=== PATIENT | female | born 1990 | race African-American/Black ===

== ENCOUNTER 2022-06-30 17:16 | Emergency (ER) | payer OTHER ==
--- OUTSIDE RECORDS SUMMARY | 2022-06-30 17:46 | XMS REPORT | Continuity of Care Document ---
:1990 Author Organization [facility] t Address [address] [place] [address] Care Team Providers Name Role Phone Edda Lewis Primary Care Physician Unavailable Helena Osman Attending Clinician Unavailable Kiara Young Attending Clinician Unavailable TABITHA BLISS Attending Clinician Unavailable TABITHA BLISS Attending Clinician Unavailable LALO SANTAMARIA Attending Clinician Unavailable Lab, Ang - Db Attending Clinician Unavailable Mayela Bahena MD Attending Clinician MAYELA BAHENA Attending Clinician Unavailable Doctor Unassigned, Elwin Attending Clinician Unavailable Lalo Santamaria MD Attending Clinician JOSY GASTELUM Attending Clinician Unavailable Payers Payer Name Policy Type Policy Number Effective Date Expiration Date S ource UMR [id number] 2021 00:00:00 UMR 53 [id number] 2021 [facility] 00:00:00 [facility] Blue Cross 6 [id number] 2019 [facility] Blue Shield 00:00:00 - [facility] [id number] 2018 00:00:00 Problems Condition Condition Condition Status Onset Resolution Last Treating Co mments Source Name Details Category Date Date Treatment Clinician Date Anosmia Anosmia Disease Active Univers 6-23 ity of 00:00: [place] 00 Medical Branch Exacerbati Exacerbati Disease Active U nivers on of on of 11-07 ity of intermitte [place] asthma [place] asthma 00 Medi luanne Branch Mixed Mixed Disease Active Univers anxiety anxiety 6 ity of and and 00:00: [place] depressive depressive 00 Me dical disorder disorder Branch History of History of Disease Active 2016-05 U nivers anxiety anxiety 2-19 ity of 00:00: [place] 00 Medical Branch Obesity Obesity Disease Active Overview: Univ ers (BMI (BMI 4-19 Formattin ity of 30-39.9) 30-39.9) 00:00: g of this [place] as 00 note Medical might be Branch different from the original. 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 Irregular Irregular Disease Active Uni vers menstrual menstrual 4-19 ity of cycle cycle 00:00: [place] 00 Medical Branch Impacted Cerumen Problem Active Common cerumen impaction [facility] Fatigue Fatigue Problem Active [facility] - [facility] Allergic Seasonal Problem Active Commo n rhinitis and Spirit perennial - CHI allergic rhinitis [facility] Vertigo Vertigo Problem Active [facility] Anxiety Depression Problem Active Comm on with Spirit anxiety - [facility] Acute Acute Problem Active Common sinusitis sinusitis Spir it - [facility] [id number] Dental Problem Active Common abscess [facility] [id number] Adult Problem Active Common general Spirit medical - CHI exam [facility] Vitamin D Vitamin D Problem Active Com mon deficiency deficiency Sp cynthia - [facility] [id number] Mild Problem Active Common intermitte Spirit nt asthma - CHI with allergic [facility] rhinitis Medical with acute Center exacerbati on [id number] Seasonal Problem Active Commo n allergic Spirit rhinitis - CHI due to [facility] [id number] [place] [id number] (BMI Spirit 30.0-34.9) - [facility] Loss of Loss of Problem Active Common taste taste [facility] Sensory Loss of Problem Active Common disorder smell [facility] of smell [facility] and/or [facility] Allergies, Adverse Reactions, Alerts Allergy Allergy Status Severity Reaction(s) Onset Inactive Treating Comm ents Source Name Type Date Date Clinician Hydrocod Propensi Active Rash Univer s one ty to 414 ity of adverse 00:00: [place] reaction [facility] Tramadol Propensi Active Rash Univer s ty to 414 ity of adverse 00:00: [place] reaction [facility] HYDROCOD DRUG Active Rash Univers ONE INGREDI 14 ity of 00:00: [place] [facility] TRAMADOL DRUG Active Rash Univers INGREDI 14 ity of 00:00: [place] 00 [facility] Codeine Codeine Active dizziness Commo n [facility] tramadol tramadol Active dizziness Com mon [facility] Social History Social Habit Start Date Stop Date Quantity Comments Source ASSERTION 2022-05-23 University of 00:00:00 [facility] History of [facility] - Tobacco Use [facility] Sex Assigned At Common [facility] cynthia - [facility] Exposure to 2022-06-20 2022-06-30 Not sure [facility] SARS-CoV-2 00:00:00 08:35:00 [facility] (event) [place] Tobacco use and 2022-06-27 2022-06-27 Smokeless tobacco Un iversity of exposure 00:00:00 00:00:00 non-user [facility] Alcohol Comment 2022-06-27 2022-06-27 Universit y of 00:00:00 00:00:00 [facility] Alcohol intake 2022-06-27 2022-06-27 Ex-drinker [facility] 00:00:00 00:00:00 (finding) [facility] Smoking Status Start Date Stop Date Source Never smoked tobacco [facility] Medications Ordered Filled Start Stop Current Ordering Indication Dosage Frequency Signature Comments Components Source Medication Medication Date Date Medication? Clinician (SIG) Name Name MULTIVIT,CA 2022- No 1{tbl} Take 1 U nivers LC,MINS/IRO 2-10 02-10 tablet by it y of N/FOLIC 09:31: 00:00 mouth Kristian (ONE-A-DAY 29 :00 daily. Medical WOMENS Branch FORMULA ORAL) MULTIVIT,CA 2022- No 1{tbl} Take 1 U nivers LC,MINS/IRO 2-10 02-10 tablet by it y of N/FOLIC 09:31: 00:00 mouth Kristian (ONE-A-DAY 29 :00 daily. Medical WOMENS Branch FORMULA ORAL) PNV 0 Yes [id number] Take 1 Univers 102-iron-fo 2-10 TAB-CAP/M2 it y of late-dha 00:00: by mouth Kristian (VITAFOL FE daily. Medica l PLUS) 90 mg Branch iron- 1 mg-200 mg Cap PNV Yes [id number] Take 1 Univers 102-iron-fo 2-10 TAB-CAP/M2 it y of late-dha 00:00: by mouth [place]ian (VITAFOL FE daily. Medica l PLUS) 90 mg Branch iron- 1 mg-200 mg Cap PNV 0 Yes [id number] Take 1 Univers 102-iron-fo 2-10 TAB-CAP/M2 it y of late-dha 00:00: by mouth [place] (VITAFOL FE daily. Medica l PLUS) 90 mg Branch iron- 1 mg-200 mg Cap cetirizine Yes 10mg Take 10 mg U nivers 10 mg 1-26 by mouth ity of tablet 00:00: in the [place] morning. Medical Branch cetirizine Yes 10mg Take 10 mg U nivers 10 mg 1-26 by mouth ity of tablet 00:00: in the [place] morning. Medical Branch cetirizine 0 Yes 10mg Take 10 mg U nivers 10 mg 1-26 by mouth ity of tablet 00:00: in the [place] morning. Medical Branch Nasonex 50 Nasonex 50 No 2{spray QD Nasonex 50 MCG/ACT MCG/ACT 8-19 s_in_ea MCG/ACT 00:00: ch_nost 00 ril} Nasonex 50 Nasonex 50 2022-0 No 2{spray QD Nasonex 50 MCG/ACT MCG/ACT 01-03 s_in_ea MCG/ACT 00:00: ch_nost 00 ril} Benzonatate Benzonatate 2021- No TID Benzonatat 200 MG 200 MG 01-03 e 200 MG 00:00: 00:00 00 :00 Benzonatate Benzonatate 0 2021- No TID Benzonatat 200 MG 200 MG 01-03 e 200 MG 00:00: 00:00 00 :00 Azithromyci Azithromyci 2021- No QD Azithromyc n 250 MG n 250 MG 01-03 in 250 MG 00:00: 00:00 00 :00 predniSONE predniSONE 2021- No QD predniSONE 10 MG 10 MG 01-03 10 MG 00:00: 00:00 00 :00 Azithromyci Azithromyci 2021- No QD Azithromyc n 250 MG n 250 MG 01-03 in 250 MG 00:00: 00:00 00 :00 predniSONE predniSONE 2021- No QD predniSONE 10 MG 10 MG 01-03 10 MG 00:00: 00:00 00 :00 Albuterol Albuterol No 2{puffs Albuterol Sulfate HFA Sulfate HFA 7-25 } Sulfate 108 (90 108 (90 00:00: HFA 108 Base) Base) 00 (90 Base) MCG/ACT MCG/ACT MCG/ACT Albuterol Albuterol No 2{puffs Albuterol Sulfate HFA Sulfate HFA 7-25 } Sulfate 108 (90 108 (90 00:00: HFA 108 Base) Base) 00 (90 Base) MCG/ACT MCG/ACT MCG/ACT Albuterol Albuterol No 2{puffs Albuterol Sulfate HFA Sulfate HFA 7-25 } Sulfate 108 (90 108 (90 00:00: HFA 108 Base) Base) 00 (90 Base) MCG/ACT MCG/ACT MCG/ACT 2021- No Take by [facility] rs vit 11-12- mouth. ity of calc,iron,f 10:08: 00:00 [facility] 00 :00 Medical ( Branch VITAMIN ORAL) 2021- No [facility] -[facility] -28 mouth. ity of calc,iron,f 10:08: 00:00 [facility] 00 :00 Medical ( Branch VITAMIN ORAL) predniSONE 2021-0 2021- No 2 tablets U nivers 20 mg 6-28 06-28 dailyx 5 ity of tablet 10:07: 00:00 days then [place] 51 :00 1 tablet Medical daily x 5 Branch days predniSONE 2021-0 2021- No 2 tablets U nivers 20 mg 6-28 06-28 dailyx 5 ity of tablet 10:07: 00:00 days then [place] 51 :00 1 tablet Medical daily x 5 Branch days MULTIVIT,CA Yes 1{tbl} Take 1 Un dennise LC,MINS/IRO 6-28 tablet by ity of N/FOLIC 10:07: mouth [place] (ONE-A-DAY 48 daily. Medical WOMENS [place] FORMULA ORAL) MULTIVIT,CA Yes 1{tbl} Take 1 Un dennise LC,MINS/IRO 6-28 tablet by ity of N/FOLIC 10:07: mouth [place] (ONE-A-DAY 48 daily. Medical WOMENS [place] FORMULA ORAL) MULTIVIT,CA Yes 1{tbl} Take 1 Un dennise LC,MINS/IRO 6-28 tablet by ity of N/FOLIC 10:07: mouth [place] (ONE-A-DAY 48 daily. Medical WOMENS [place] FORMULA ORAL) MULTIVIT,CA Yes 1{tbl} Take 1 Un dennise LC,MINS/IRO 6-28 tablet by ity of N/FOLIC 10:07: mouth [place] (ONE-A-DAY 48 daily. Medical WOMENS [place] FORMULA ORAL) phentermine 2021- No 37.5mg Take 37.5 Univers (ADIPEX-P) 6-28 06-28 mg by ity of 37.5 mg 10:07: 00:00 mouth [place] capsule 47 :00 every Medical morning. Branch phentermine 2021- No 37.5mg Take 37.5 Univers (ADIPEX-P) 6-28 06-28 mg by ity of 37.5 mg 10:07: 00:00 mouth [place] capsule 47 :00 every Medical morning. Branch montelukast 2021- No 1 tablet U nivers 10 mg 11-12 in the ity of tablet 10:07: 00:00 evening [place] 26 :00 Medical Branch montelukast 2021- No 1 tablet U nivers 10 mg 11-12 in the ity of tablet 10:07: 00:00 evening [place] 26 :00 Medical Branch fluticasone 2021- No 2 spray in Univers propionate 11-12 each ity of (FLONASE 10:07: 00:00 nostril [place] ALLERGY 11 :00 Medical RELIEF) 50 Branch mcg/actuati on nasal spray fluticasone 2021- No 2 spray in Univers propionate 11-12 each ity of (FLONASE 10:07: 00:00 nostril [place] ALLERGY 11 :00 Medical RELIEF) 50 Branch mcg/actuati on nasal spray albuterol 2021- No 2{puff} Take 2 Un dennise sulfate 11-12 Puffs by ity of (PROAIR 10:07: 00:00 mouth as [place] RESPICLICK) 04 :00 needed. Medic al 90 Branch mcg/actuati on AePB albuterol 2021- No 2{puff} Take 2 Un dennise sulfate 11-12 Puffs by ity of (PROAIR 10:07: 00:00 mouth as [place] RESPICLICK) 04 :00 needed. Medic al 90 Branch mcg/actuati on AePB Amoxicillin Amoxicillin Yes Na Young 1 tablet Common 02-11 Spirit 00:00: - [facility]I 00 [facility] Amoxicillin Amoxicillin No 1{table TID Amoxicilli 500 MG 500 MG 02-11 t} n 500 MG 00:00: 00 Amoxicillin Amoxicillin No 1{table TID Amoxicilli 500 MG 500 MG 02-11 t} n 500 MG 00:00: 00 Amoxicillin Amoxicillin No 1{table TID Amoxicilli 500 MG 500 MG 02-11 t} n 500 MG 00:00: 00 Amoxicillin Amoxicillin No 1{table TID Amoxicilli 500 MG 500 MG 02-11 t} n 500 MG 00:00: 00 Amoxicillin Amoxicillin No 1{table TID Amoxicilli 500 MG 500 MG 02-11 t} n 500 MG 00:00: 00 Cetirizine Cetirizine Yes Na Young 1 tablet Common HCl HCl 02-11 Spirit 00:00: - CHI 00 [facility] norgestimat 2016-05- No [id number] 1{tbl} Take 1 Univers e-ethinyl 2-11-12 tablet by ity of estradiol 00:00: 00:00 mouth [place] (TRI-LO-SPR 00 :00 daily. Medica l INTEC) Branch 0.18/0.215/ 0.25 mg-25 mcg tablet norgestimat 2016-05- No [id number] 1{tbl} Take 1 Univers e-ethinyl 2-11-12 tablet by ity of estradiol 00:00: 00:00 mouth [place] (TRI-LO-SPR 00 :00 daily. Medica l INTEC) Branch 0.18/0.215/ 0.25 mg-25 mcg tablet mometasone 2016-05- No SHAKE LQ Un dennise 50 0-19 -28 AND U 2 ity of mcg/actuati 00:00: 00:00 SPRAYS IEN [place] on nasal 00 :00 QD Medical spray Branch mometasone 2016-05- No SHAKE LQ Un dennise 50 0-19 06-28 AND U 2 ity of mcg/actuati 00:00: 00:00 SPRAYS IEN [place] on nasal 00 :00 QD Medical spray Branch Montelukast Montelukast Yes Na Young 1 tablet Common Sodium Sodium in the Spirit evening [facility] Nasonex Nasonex Yes Na Young 2 sprays Co mmon in each Spirit nostril - [facility] Augmentin Augmentin Yes Na Young 1 tablet [facility] Levocetiriz Levocetiriz Yes Na Young 1 TAB(S) Common ine ine ONCE A DAY Spirit Dihydrochlo Dihydrochlo (IN THE - CHI ride ride EVENING) [facility] ProAir ProAir Yes Na Young 2 puffs as Co mmon RespiClick RespiClick needed S pirit - CHI [facility] Cetirizine Cetirizine No QD Cetirizine HCl 10 MG HCl 10 MG HCl 10 MG Levocetiriz Levocetiriz No Levocetiri ine ine zine Dihydrochlo Dihydrochlo Dihydrochl ride 5 MG ride 5 MG oride 5 MG Cetirizine Cetirizine No 1{table QD Cetirizine HCl 10 MG HCl 10 MG t} HCl 10 MG Augmentin Augmentin No 1{table BID Augmentin 875-125 MG 875-125 MG t} 875-125 MG Nasonex 50 Nasonex 50 No 2{spray QD Nasonex 50 MCG/ACT MCG/ACT s_in_ea MCG/ACT ch_nost ril} Azithromyci Azithromyci No QD Azithromyc n 250 MG n 250 MG in 250 MG Montelukast Montelukast No 1{table QD Montelukas Sodium 10 Sodium 10 t_in_th t Sodium e_eveni 10 ng} predniSONE predniSONE No QD predniSONE 20 MG 20 MG 20 MG Cetirizine Cetirizine No QD Cetirizine HCl 10 MG HCl 10 MG HCl 10 MG Levocetiriz Levocetiriz No Levocetiri ine ine zine Dihydrochlo Dihydrochlo Dihydrochl ride 5 MG ride 5 MG oride 5 MG Cetirizine Cetirizine No 1{table QD Cetirizine HCl 10 MG HCl 10 MG t} HCl 10 MG Augmentin Augmentin No 1{table BID Augmentin 875-125 MG 875-125 MG t} 875-125 MG Montelukast Montelukast No 1{table QD Montelukas Sodium 10 Sodium 10 t_in_th t Sodium MG MG e_eveni 10 MG ng} Flonase 50 Flonase 50 No 2{spray QD Flonase 50 MCG/ACT MCG/ACT _in_eac MCG/ACT h_nostr il} Augmentin Augmentin No 1{table BID Augmentin 875-125 MG 875-125 MG t} 875-125 MG predniSONE predniSONE No QD predniSONE 20 MG 20 MG 20 MG Azithromyci Azithromyci No QD Azithromyc n 250 MG n 250 MG in 250 MG Levocetiriz Levocetiriz No Levocetiri ine ine zine Dihydrochlo Dihydrochlo Dihydrochl ride 5 MG ride 5 MG oride 5 MG Montelukast Montelukast No 1{table QD Montelukas Sodium 10 Sodium 10 t_in_th t Sodium e_eveni 10 ng} Nasonex 50 Nasonex 50 No 2{spray QD Nasonex 50 MCG/ACT MCG/ACT s_in_ea MCG/ACT ch_nost ril} ProAir ProAir No 2{puffs ProAir RespiClick RespiClick _as_nee RespiClick 108 (90 108 (90 ded} 108 (90 Base) Base) Base) MCG/ACT MCG/ACT MCG/ACT Cetirizine Cetirizine No QD Cetirizine HCl 10 MG HCl 10 MG HCl 10 MG Cetirizine Cetirizine No 1{table QD Cetirizine HCl 10 MG HCl 10 MG t} HCl 10 MG Montelukast Montelukast No 1{table QD Montelukas Sodium 10 Sodium 10 t_in_th t Sodium MG MG e_eveni 10 MG ng} Flonase 50 Flonase 50 No 2{spray QD Flonase 50 MCG/ACT MCG/ACT _in_eac MCG/ACT h_nostr il} Augmentin Augmentin No 1{table BID Augmentin 875-125 MG 875-125 MG t} 875-125 MG predniSONE predniSONE No QD predniSONE 20 MG 20 MG 20 MG Azithromyci Azithromyci No QD Azithromyc n 250 MG n 250 MG in 250 MG Levocetiriz Levocetiriz No Levocetiri ine ine zine Dihydrochlo Dihydrochlo Dihydrochl ride 5 MG ride 5 MG oride 5 MG Montelukast Montelukast No 1{table QD Montelukas Sodium 10 Sodium 10 t_in_th t Sodium e_eveni 10 ng} Nasonex 50 Nasonex 50 No 2{spray QD Nasonex 50 MCG/ACT MCG/ACT s_in_ea MCG/ACT ch_nost ril} ProAir ProAir No 2{puffs ProAir RespiClick RespiClick _as_nee RespiClick 108 (90 108 (90 ded} 108 (90 Base) Base) Base) MCG/ACT MCG/ACT MCG/ACT Cetirizine Cetirizine No QD Cetirizine HCl 10 MG HCl 10 MG HCl 10 MG Cetirizine Cetirizine No 1{table QD Cetirizine HCl 10 MG HCl 10 MG t} HCl 10 MG Montelukast Montelukast No 1{table QD Montelukas Sodium 10 Sodium 10 t_in_th t Sodium e_eveni 10 ng} Flonase 50 Flonase 50 No 2{spray QD Flonase 50 MCG/ACT MCG/ACT _in_eac MCG/ACT h_nostr il} Augmentin Augmentin No 1{table BID Augmentin 875-125 MG 875-125 MG t} 875-125 MG predniSONE predniSONE No QD predniSONE 20 MG 20 MG 20 MG Azithromyci Azithromyci No QD Azithromyc n 250 MG n 250 MG in 250 MG Levocetiriz Levocetiriz No Levocetiri ine ine zine Dihydrochlo Dihydrochlo Dihydrochl ride 5 MG ride 5 MG oride 5 MG Nasonex 50 Nasonex 50 No 2{spray QD Nasonex 50 MCG/ACT MCG/ACT s_in_ea MCG/ACT ch_nost ril} Montelukast Montelukast No 1{table QD Montelukas Sodium 10 Sodium 10 t_in_th t Sodium MG MG e_eveni 10 MG ng} Cetirizine Cetirizine No QD Cetirizine HCl 10 MG HCl 10 MG HCl 10 MG Cetirizine Cetirizine No 1{table QD Cetirizine HCl 10 MG HCl 10 MG t} HCl 10 MG Nasonex 50 Nasonex 50 No 2{spray QD Nasonex 50 MCG/ACT MCG/ACT s_in_ea MCG/ACT ch_nost ril} Azithromyci Azithromyci No QD Azithromyc n 250 MG n 250 MG in 250 MG Montelukast Montelukast No 1{table QD Montelukas Sodium 10 Sodium 10 t_in_th t Sodium e_eveni 10 ng} predniSONE predniSONE No QD predniSONE 20 MG 20 MG 20 MG Immunizations Ordered Filled Immunization Date Status Comments Sour e Immunization Name Name Influenza Virus 2022-02-15 Completed Universit y of Vaccine - Whole 00:00:00 [place] Med ical Branch Influenza Virus 2022-02-15 Completed Universit y of Vaccine - Whole 00:00:00 [facility] Influenza Virus 2022-02-15 Completed Universit y of Vaccine - Whole 00:00:00 [facility] SARS-COV-2 COVID-19 2020-10-03 Completed Unive rsity of NHUNG/J&J VACCINE 00:00:00 [facility] SARS-COV-2 COVID-19 2020-10-03 Completed Unive rsity of NHUNG/J&J VACCINE 00:00:00 [facility] SARS-COV-2 COVID-19 2020-10-03 Completed Unive rsity of NHUNG/J&J VACCINE 00:00:00 [facility] SARS-COV-2 COVID-19 2020-10-03 Completed Unive rsity of NHUNG/J&J VACCINE 00:00:00 [facility] SARS-COV-2 COVID-19 2020-10-03 Completed Unive rsity of NHUNG/J&J VACCINE 00:00:00 [facility] SARS-COV-2 COVID-19 2020-10-03 Completed Unive rsity of NHUNG/J&J VACCINE 00:00:00 [facility] SARS-COV-2 COVID-19 2020-10-03 Completed Unive rsity of NHUNG/J&J VACCINE 00:00:00 [facility] TDAP (ADACEL) 2010-04-17 Completed University of VACCINE 00:00:00 [facility] TDAP (ADACEL) 2010-04-17 Completed University of VACCINE 00:00:00 [facility] TDAP (ADACEL) 2010-04-17 Completed University of VACCINE 00:00:00 [facility] TDAP (ADACEL) 2010-04-17 Completed University of VACCINE 00:00:00 [facility] TDAP (ADACEL) 2010-04-17 Completed University of VACCINE 00:00:00 [facility] TDAP (ADACEL) 2010-04-17 Completed University of VACCINE 00:00:00 [facility] TDAP (ADACEL) 2010-04-17 Completed University of VACCINE 00:00:00 [facility] Vital Signs Vital Name Observation Time Observation Value Comments Source Systolic blood 2022-06-27 14:35:00 114 mm[Hg] Univer sity of pressure [facility] Diastolic blood 2022-06-27 14:35:00 75 mm[Hg] Unive rsity of pressure [facility] Heart rate 2022-06-27 14:34:00 84 /min Universi ty of [facility] Body temperature 2022-06-27 14:34:00 36.89 Stephanie Univ ersity of [facility] Body height 2022-06-27 14:34:00 162.6 cm Universi ty of [facility] Body weight 2022-06-27 14:34:00 98.476 kg Universi ty of [facility] BMI 2022-06-27 14:34:00 37.27 kg/m2 Universi ty of [facility] Systolic blood 2021-11-12 14:28:00 107 mm[Hg] Univer sity of pressure [facility] Diastolic blood 2021-11-12 14:28:00 74 mm[Hg] Unive rsity of pressure [facility] Heart rate 2021-11-12 14:28:00 85 /min Universi ty of [facility] Body temperature 2021-11-12 14:28:00 36.72 Stephanie [facility] ersity of [facility] Respiratory rate 2021-11-12 14:28:00 18 /min Univ ersity of [facility] Body height 2021-11-12 14:28:00 162.6 cm Universi ty of [facility] Body weight 2021-11-12 14:28:00 97.523 kg Universi ty of [facility] BMI 2021-11-12 14:28:00 36.90 kg/m2 Universi ty of [facility] height 2021-02-28 09:00:00 64 [in_i] Common [facility] weight 2021-02-28 09:00:00 193.8 [lb_av] [facility] temperature 2021-02-28 09:00:00 97.6 [degF] Common S [facility] bmi 2021-02-28 09:00:00 33.26 [facility] oximetry 2021-02-28 09:00:00 98 % [facility] blood pressure 2021-02-28 09:00:00 116 mm[Hg] [facility] - systolic [facility] blood pressure 2021-02-28 09:00:00 78 mm[Hg] [facility] - diastolic [facility] Procedures Procedure Date / Time Performing Clinician Source Performed US OB TRANSVAGINAL 2022-06-27 15:17:46 Mayela Bahena [facility] ASSIGNMENT OF BENEFITS 2022-06-27 14:22:17 [facility] POCT TEST 2022-06-27 00:00:00 Mayela Bahena [facility] POCT URINALYSIS W/O 2022-06-27 00:00:00 Mayela Bahena [facility] SPECIFIC GRAVITY [facility] INSURANCE CORRESPONDENCE 2021-11-04 05:01:00 Doctor Unassigned, [facility] Encounters Start End Encounter Admission Attending Care Care Encounter Source Date/Time Date/Time Type Type Clinicians Facility Department ID 2022-06-19 Outpatient Jacqui, STLMLC STLMLC [id number] Common 09:39:00 [place] [id number] [facility] 2022-01-03 Outpatient Young, Na STLMLC STLMLC [id number] 2 Common 15:31:00 [id number] [facility] 2021-06-12 Outpatient Young, Na STLMLC STLMLC [id number] 2 Common 13:48:19 [id number] [facility] 2021-06-12 Outpatient Young, Na STLMLC STLMLC [id number] 2 Common 13:35:36 [id number] [facility] 2021-06-12 Outpatient Young, Na STLMLC STLMLC [id number] 2 Common 13:29:29 [id number] [facility] 2021-06-12 Outpatient Young, Na STLMLC STLMLC [id number] 2 Common 12:35:19 [id number] [facility] 2021-06-12 Outpatient Young, Na STLMLC STLMLC [id number] 2 Common 12:34:24 [id number] [facility] 2021-06-12 Outpatient Young, Na STLMLC STLMLC [id number] 2 Common 12:34:03 [id number] [facility] 2021-06-12 Outpatient Young[facility] [id number] 2 Common 12:03:07 [id number] [facility] 2021-06-12 Outpatient YoungKiara fajardo [facility] [id number] 2 Common 11:24:33 [id number] [facility] 2021-06-12 Outpatient YoungKiara [facility] [id number] 2 Common 11:22:45 [id number] [facility] 2022-11-14 2022-11-14 Outpatient R NAKURTABITHA CHAND[facility]ER [facility] B [id number] Univers 09:00:00 09:00:[address] [facility] [place] [place] 2022-11-13 2022-11-13 Outpatient R LALO SANTAMARIA [facility] [id number] Univers 09:00:00 09:00:00 ity [facility] 2022-11-13 2022-11-13 Outpatient R LALO SANTAMARIA [facility] [id number] Univers 09:00:00 09:00:[address] [facility] [place] [place] 2022-07-28 2022-07-28 Outpatient R [facility] [id number] Univers 08:30:00 08:30:[address] [facility] [place] [place] 2022-06-30 2022-06-30 [employer] [place] Ramy [facility] [id number] Univers 09:15:00 09:56:25 Visit Mayela Bahena [id number] [id number] [place] as JORGE?BLEA [id number] [address] MEDICAL OFFICE BUILDING 2022-06-30 2022-06-30 Outpatient R MAYELA BAHENA [facility] [id number] Univers 09:15:00 09:15:00 ity [facility] 2022-06-27 2022-06-27 Initial Mayela Bahena [facility] [id number] Univers 08:30:00 09:25:05 Cam DEXTER [id number] i ty of [place] [id number] [address] 2022-06-27 2022-06-27 Outpatient R JOSEF MAYELA [facility] [id number] Univers 08:30:00 09:25:05 ity of [facility] 2022-06-27 2022-06-27 Orders Doctor RADHA [id number] Univers 00:00:00 00:00:00 Only Unassigned, SOFI [id number] ity of [facility] 4.2.7.2.686 [place] as [id number] [address] 2022-01-03 2022-01-03 (WEB) STLMLC STLMLC [id number] Co mmon 00:00:00 00:00:00 [facility] 2022-01-03 2022-01-03 OFFICE STLMLC STLMLC [id number] Co mmon 00:00:00 00:00:00 VISIT EST Spir it PT LEVEL 3 - [facility] 2021-12-09 2021-12-09 (TEL) STLMLC STLMLC [id number] Co mmon 00:00:00 00:00:00 [facility] 2021-11-12 2021-11-12 Office Lalo Santamaria [facility] [id number] Univers 09:00:00 09:50:03 Visit DEXTER [id number] it [place] [id number] [address] 2021-11-12 2021-11-12 Outpatient R LALO SANTAMARIA [facility] [id number] Univers 09:00:00 09:50:03 ity [facility] 2021-11-04 2021-11-04 Orders Doctor RADHA [id number] Univers 00:00:00 00:00:00 Only Unassigned, SOFI [id number] ity of [place] [facility] 4.2.7.2.686 [place] [id number] [place] [id number] [address] 2021-08-07 2021-08-07 (TEL) STLMLC STLMLC [id number] Co mmon 00:00:00 00:00:00 [facility] 2021-02-28 2021-02-28 PREV VISIT STLMLC STLMLC [id number] Common 00:00:00 00:00:00 EST A[age] José Miguel 18-38 [facility] 2020-07-19 2020-07-19 Outpatient STLMLC STLMLC [id number] Common 00:00:00 00:00:00 [facility] 2020-03-28 2020-03-28 Outpatient STLMLC STLMLC [id number] Common 00:00:00 00:00:00 [facility] 2020-03-26 2020-03-26 Outpatient STLMLC STLMLC [id number] Common 00:00:00 00:00:00 [facility] 2020-03-26 2020-03-26 Outpatient STLMLC STLMLC [id number] Common 00:00:00 00:00:00 [facility] 2020-02-24 2020-02-24 Outpatient R NIRAV, [facility] [id number] Univers 14:30:00 14:30:00 JOSY fragoso [facility] 2019-11-14 2019-11-14 [facility] [id number] Common 10:33:00 10:33:[address] [facility] 2019-10-21 2019-10-21 Out[facility] [id number] Common 08:20:00 08:20:[address] [facility] 2019-10-06 2019-10-06 [facility] [id number] Common 08:26:00 08:26:[address] [facility] [address] [facility] 2019-10-05 2019-10-05 [facility] [id number] Common 12:14:00 12:14:[address] [facility] 2019-10-05 2019-10-05 [facility] [id number] Common 09:56:00 09:56:[address] [facility] 2018-11-26 2018-11-26 [facility] [id number] Common 10:00:00 10:00:[address] [facility] 2018-05-28 2018-05-28 [facility] [id number] Common 09:00:00 09:00:[address] [facility] 2018-02-11 2018-02-11 [facility] [id number] Common 14:15:00 14:15:[address] [facility] 2017-10-21 2017-10-21 [facility] [id number] Common 09:15:00 09:15:[address] [facility] Results Test Description Test Time Test Comments Results Result Comments Source POCT URINALYSIS W/O SPECIFIC GRAVITY 2022-06-27 14:39:00 Test Item Value Reference Range Interpretation Comme nts POCT PH U (test code = 3254) 5 mg/dl 5-8 POCT U LEUK EST (test code = 3263) Negative Negative - Negative POCT U NIT (test code = 3262) Negative Negative - Negative POCT U PROT (test code = 3259) Negative Negative - Negative POCT U GLU (test code = 3256) Normal Negative - Negative POCT U KETONE (test code = 3258) Negative Negative - Negative POCT U BLD (test code = 3257) Negative Negative - Negative [id number] 14:39:00 Test Item Value Reference Range Interpretation Comments POCT PREG (test code = 1605) Positive On board controls acceptable with C Yes Line (test code = 3574) POCT PREG LOT # (test code = 3575) POCT PREG TEST DATE (test code = 3576) [facility] URINALYSIS W/O SPECIFIC [id number] 14:39:00 Test Item Value Reference Range Interpretation Comments POCT PH U (test code = 3254) 5 mg/dl 5-8 POCT U LEUK EST (test code = Negative Negative - Negative 3263) POCT U NIT (test code = 3262) Negative Negative - Negative POCT U PROT (test code = 3259) Negative Negative - Negative POCT U GLU (test code = 3256) Normal Negative - Negative POCT U KETONE (test code = 3258) Negative Negative - Negative POCT U BLD (test code = 3257) Negative Negative - Negative [id number] 14:39:00 Test Item Value Reference Range Interpretation Comments POCT PREG (test code = 1605) Positive On board controls acceptable with C Yes Line (test code = 3574) POCT PREG LOT # (test code = 3575) POCT PREG TEST DATE (test code = 3576) [facility]
--- NOTE | 2022-06-30 18:24 | RAD REPORT ---
[facility] DES[facility] 6[facility]13 pm CLINICAL HISTORY: COUGH. SOB. COMPARISON: No comparisons TECHNIQUE: PA and lateral views of the chest. FINDINGS: The lungs are clear. No pneumothorax or effusion. The cardiomediastinal contours are unrem arkable. IMPRESSION: No acute cardiopulmonary process.
[2022-06-30 19:10] LABS: SARS-COV-2 RT PCR NEGATIVE (NEGATIVE)
--- NOTE | 2022-06-30 19:55 | ER ---
Nurse's Notes [facility] Name: Marika Leigh Age: 31 yrs Sex: Female : 1990 Arrival Date: 06/30/2022 Time: 17:21 Bed 13 Private MD: Diagnosis: Pneumonia due to other specified bacteria;Dyspnea;8 weeks gestation of Presentation: 06/30 17:51 Chief complaint: Patient states: short of breath, runny nose, cough, chest hurts and jh5 naval when i cough real bad. Coronavirus screen: Vaccine status: Patient reports being unvaccinated. Client denies travel out of the [place] in the last 14 days. Ebola Screen: Patient negative for fever greater than or equal to 101.5 degrees Fahrenheit, and additional compatible Ebola Virus Disease symptoms Patient denies exposure to infectious person. Patient denies travel to an Ebola-affected area in the 21 days before illness onset. Initial Sepsis Screen: Does the patient meet any 2 criteria? No. Patient's initial sepsis screen is negative. Does the patient have a suspected source of infection? No. Patient's initial sepsis screen is negative. Risk Assessment: Do you want to hurt yourself or someone else? Patient reports no desire to harm self or others. Onset of symptoms was June 28, 2022. 17:51 Method Of Arrival: Ambulatory [facility] 17:51 Acuity: SUE 3 jh5 Triage Assessment: 17:54 General: Appears in no apparent distress. uncomfortable, well groomed, well developed, [facility] Behavior is calm, cooperative, appropriate for age. Pain: Denies pain. Respiratory: Reports shortness of breath cough that is Onset: The symptoms/episode began/occurred gradually, the patient has mild shortness of breath. 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 - Social history:: Smoking status: Patient denies any tobacco usage or history of. - Family history:: not pertinent. - Hospitalizations: : No recent hospitalization is reported. Screenin:37 [facility] ED Fall Risk Assessment (Adult) History of falling in the last 3 months, jb4 including since admission No falls in past 3 months (0 pts) Confusion or Disorientation No (0 pts) Score/Fall Risk Level 0 - 2 = Low Risk Oriented to surroundings, Maintained a safe environment. Abuse screen: Denies threats or abuse. Nutritional screening: No deficits noted. Tuberculosis screening: No symptoms or risk factors identified. Assessment: 19:49 General: Appears in no apparent distress. comfortable, Behavior is calm, cooperative, jb4 appropriate for age. Pain: Denies pain. Neuro: Level of Consciousness is awake, alert, obeys commands, Oriented to person, place, time, situation. Cardiovascular: Patient's skin is warm and dry. Respiratory: Airway is patent Respiratory effort is even, labored, Respiratory pattern is regular, symmetrical, Breath sounds are clear in right upper lobe, left upper lobe, right middle lobe, left lower lobe, right lower lobe, right posterior upper lobe, right posterior middle lobe and right posterior lower lobe Breath sounds with wheezes in left posterior upper lobe and left posterior lower lobe. GI: No signs and/or symptoms were reported involving the gastrointestinal system. : EENT: No signs and/or symptoms were reported regarding the EENT system. Derm: Skin is intact, Skin is pink, warm \T\ dry. Musculoskeletal: Circulation, motion, and sensation intact. Range of motion: intact in all extremities. 19:50 Reassessment: Pt requesting breathing treatment, provider notified. jb4 20:24 Reassessment: Patient appears in no apparent distress at this time. Patient and/or jb4 family updated on plan of care and expected duration. Pain level reassessed. Patient is alert, oriented x 3, equal unlabored respirations, skin warm/dry/pink. d/c pending completion of Breathing treatment. Vital Signs: 17:51 BP 126 / 84; Pulse 111; Resp 18; Temp 98.2; Pulse Ox 99% ; Pain 0/10; jh5 19:44 BP 117 / 70; Pulse 105; Resp 16; Pulse Ox 94% on R/A; jb4 ED Course: 17:21 Patient arrived in ED. as 17:49 Forest Mohamud MD is Attending Physician. rn 17:54 Triage completed. 5 17:54 Arm band placed on right wrist. [facility] 19:43 Attending Physician role handed off by Forest Mohamud MD [facility] 19:43 Braxton Wade MD is Attending Physician. [facility] 19:53 Devendra Jarrett, RN is Primary Nurse. jb4 19:53 Jack Truong MD is Referral Physician. [facility] 20:37 Patient has correct armband on for positive identification. Bed in low position. Call jb4 light in reach. Side rails up X 1. Client placed on continuous cardiac and pulse oximetry monitoring. NIBP monitoring applied. 20:37 No provider procedures requiring assistance completed. Patient did not have IV access jb4 during this emergency room visit. Administered Medications: 20:04 Drug: Xopenex (levalbuterol) 2.5 mg Route: Inhalation; jb4 20:37 Follow up: Response: No adverse reaction; Marked relief of symptoms jb4 20:04 Drug: Zithromax (azithromycin) 500 mg Route: PO; jb4 20:37 Follow up: Response: No adverse reaction jb4 20:04 Drug: Augmentin (Amoxicillin-Clavulanate) 875 mg Route: PO; jb4 20:37 Follow up: Response: No adverse reaction jb4 20:14 Drug: Rocephin (cefTRIAXone) 1 grams Route: IM; Site: right gluteus; jb4 20:37 Follow up: Response: No adverse reaction jb4 Outcome: 19:55 Discharge ordered by . [facility] 20:37 Discharged to home ambulatory. jb4 20:37 Condition: stable 20:37 Discharge instructions given to patient, Instructed on discharge instructions, follow up and referral plans. Demonstrated understanding of instructions, follow-up care. 20:39 Patient left the ED. jb4 Signatures: Braxton Wade MD MD cha Martinez, Amelia as Nieto, Roman, MD MD rn Bryson, James RN RN jb4 Xena Ribeiro RN RN jh5
--- NOTE | 2022-06-30 19:55 | EDPHYS ---
Physician Documentation [facility] Name: Marika Leigh Age: 31 yrs Sex: Female : 1990 Arrival Date: 06/30/2022 Time: 17:21 Bed 13 Private MD: ED Physician Braxton Wade HPI: 06/30 18:06 This 31 yrs old Black Female presents to ER via Ambulatory with complaints of Shortness rn Of Breath, Pain All Over, Cough, Wheezing > 1 Year, Chest Pain. 18:07 The patient or guardian reports cough, that is intermittent, described as mild, with rn productive sputum, difficulty breathing. Onset: The symptoms/episode began/occurred 2 day(s) ago. Severity of symptoms: At their worst the symptoms were moderate, in the emergency department the symptoms are unchanged. Modifying factors: The symptoms are alleviated by nothing, the symptoms are aggravated by exertion. Associated signs and symptoms: Pertinent positives: fever, rhinorrhea, sore throat, Pertinent negatives: chest pain, diarrhea. The patient has experienced similar episodes in the past. The patient has not recently seen a physician. Pt reports fever 2 days ago, cough/congestion/sore throat/sob. Took COVID test at home yesterday, was negative. NO known sick contacts. Is 8 weeks . . 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 - Social history:: Smoking status: Patient denies any tobacco usage or history of. - Family history:: not pertinent. - Hospitalizations: : No recent hospitalization is reported. ROS: 18:07 Constitutional: + fever Eyes: Negative for injury, pain, redness, and discharge, ENT: + rn cough/congestion Cardiovascular: Negative for chest pain, palpitations, and edema, Respiratory: + cough, +sob Abdomen/GI: Negative for abdominal pain, nausea, vomiting, diarrhea, and constipation, MS/Extremity: Negative for injury and deformity, Skin: Negative for injury, rash, and discoloration, Neuro: Negative for headache, numbness, tingling, and seizure. 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 Head/Face: Normocephalic, atraumatic. ENT: NO pharyngeal erythema or exudate, no stridor Cardiovascular: Tachycardic, regular Respiratory: No increased work of breathing, no retractions or nasal flaring. Skin: Warm, dry MS/ Extremity: Pulses equal, no cyanosis. Neuro: Awake and alert, GCS 15 Vital Signs: 17:51 BP 126 / 84; Pulse 111; Resp 18; Temp 98.2; Pulse Ox 99% ; Pain 0/10; jh5 19:44 BP 117 / 70; Pulse 105; Resp 16; Pulse Ox 94% on R/A; jb4 MDM: 17:49 Patient medically screened. rn 19:12 Transition of care: After a detail discussion of the patient's case, care is rn transferred to Braxton Wade MD. 06/30 17:56 Order name: COVID-19/FLU A+B rn 06/30 17:56 Order name: Strep rn 06/30 17:35 Order name: XRAY Chest (1 view) rn 06/30 18:25 Order name: RAD; Complete Time: 18:34 EDMS 06/30 18:27 Order name: Group A Streptococcus Rapid Sc; Complete Time: 18:34 EDMS 06/30 19:10 Order name: COVID-19/FLU A+B; Complete Time: 19:48 EDMS Administered Medications: 20:04 Drug: Xopenex (levalbuterol) 2.5 mg Route: Inhalation; jb4 20:37 Follow up: Response: No adverse reaction; Marked relief of symptoms jb4 20:04 Drug: Zithromax (azithromycin) 500 mg Route: PO; jb4 20:37 Follow up: Response: No adverse reaction jb4 20:04 Drug: Augmentin (Amoxicillin-Clavulanate) 875 mg Route: PO; jb4 20:37 Follow up: Response: No adverse reaction jb4 20:14 Drug: Rocephin (cefTRIAXone) 1 grams Route: IM; Site: right gluteus; jb4 20:37 Follow up: Response: No adverse reaction jb4 Disposition Summary: 06/30/22 19:55 Discharge Ordered Location: Home louie Problem: new louie Symptoms: have improved louie Condition: Stable louie Diagnosis - Pneumonia due to other specified bacteria louie - Dyspnea louie - 8 weeks gestation of louie Followup: [facility] - With: Private Physician - When: 2 - 3 days - Reason: Recheck today's complaints, Continuance of care, Re-evaluation by your physician Followup: [place] - With: Jack Truong MD - When: 2 - 3 days - Reason: Recheck today's complaints, Re-evaluation by your physician Discharge Instructions: - Discharge Summary Sheet louie - Community-Acquired Pneumonia, Adult louie - Care louie - Upper Respiratory Infection, Adult louie - First Trimester of , [id number] louie - Upper Respiratory Infection, Adult, [id number] [facility] Forms: - Medication Reconciliation Form [facility] - Thank You Letter [facility] - Antibiotic Education [facility] - Prescription Opioid Use [facility] Prescriptions: - Augmentin 875-125 mg Oral Tablet - take 1 tablet by ORAL route every 12 hours for 10 days; 20 tablet; Refills: 0, [facility] Product Selection Permitted - Zithromax 500 mg Oral Tablet - take 1 tablet by ORAL route once daily for 5 days; 5 tablet; Refills: 0, [facility] Product Selection Permitted - albuterol sulfate 90 mcg/actuation Inhalation HFA aerosol inhaler - inhale 2 puff by INHALATION route every 4-6 hours; 1 Pump; Refills: 0, Product [facility] Selection Permitted - Tylenol 325 mg Oral Tablet - take 2 tablets by ORAL route every 6 hours as needed; 1 bottle; Refills: 0, [facility] Product Selection Permitted Signatures: Dispatcher [employer] Braxton Argueta MD MD cha Nieto, Roman, MD MD rn Bryson, James RN RN jb4 Xena Ribeiro RN RN jh5
[2022-06-30] MEDS ORDERED: AMOX/K CLAV 875 MG TAB ONE (19:59)
[2022-06-30] MEDS ORDERED: CEFTRIAXONE 1000 MG/VIAL ONE (20:00)
[2022-06-30] MEDS ORDERED: LEVALBUTEROL 1.25 MG/3 ML NEB ONE (20:00)
[2022-06-30] MEDS ORDERED: AZITHROMYCIN 250 MG TAB ONE (20:00)
[2022-06-30] MEDS ORDERED: WATER FOR INJ,STERILE 10 ML ONE (20:00)
[2022-06-30 21:24] VITALS: TEMP 98.2
[2022-06-30 21:25] VITALS: BP 117/70; O2SAT 94
== END 2022-06-30 20:39 | disposition home or self-care (01) ==
LOC: ER 17:16
DX: O99.511 Diseases of the respiratory system complicating pregnancy, first trimester (principal); J15.8 Pneumonia due to other specified bacteria; R06.00 Dyspnea, unspecified; Z20.822 Contact with and (suspected) exposure to COVID-19; Z3A.08 8 weeks gestation of pregnancy
CPT/HCPCS: 87070; 87081; 0240U; 71045; J7614